=== PATIENT | female | born 1950 | race Caucasian/White ===

== ENCOUNTER → 2016-08-08 | Outpatient (CLI) | payer OTHER ==
[~2016-08-08] MED LIST: BISA10SU2 PR; DEXA4TAB PO; DEXA6TAB PO; ENOX40SY4 SQ; FAMO20TA7 PO; FISH OIL PO; HYDR-3138 PO; HYDR-3240 PO; LEVE10007 PO; LEVE500T53 PO; LEVE500T8 PO; NYST1000 PO; SENN-31 PO; SODI1TAB PO; TEMO250C3 PO; VITAMIN B PO; VITAMIN C PO; VITAMIN D PO; VITAMIN E PO
== END | disposition home or self-care (01) ==
LOC: ROC 08:18
PROVIDERS: ATTEND Radiology Radiation Oncology
DX: C71.3 Malignant neoplasm of parietal lobe (principal)
CPT/HCPCS: 99213; G0463

== ENCOUNTER → 2016-09-19 | Outpatient (CLI) | payer MEDICARE, OTHER ==
[~2016-09-19] MED LIST changes: +GADOBUTROL 7.5 MMOL/7.5 ML PFS ONE
== END | disposition home or self-care (01) ==
LOC: CFH 10:02
PROVIDERS: ATTEND Radiology Radiation Oncology
DX: C71.4 Malignant neoplasm of occipital lobe (principal); G93.89 Other specified disorders of brain; T50.8X1A Poisoning by diagnostic agents, accidental (unintentional), initial encounter
CPT/HCPCS: 36415; 70553; 82565; 84520; A9585

== ENCOUNTER → 2016-09-21 | Outpatient (CLI) | payer MEDICARE, OTHER ==
[~2016-09-21] MED LIST changes: -GADOBUTROL 7.5 MMOL/7.5 ML PFS ONE
== END | disposition home or self-care (01) ==
LOC: ROC 08:29
PROVIDERS: ATTEND Radiology Radiation Oncology
DX: C71.9 Malignant neoplasm of brain, unspecified (principal)
CPT/HCPCS: G0463

== ENCOUNTER → 2016-11-24 | Outpatient (CLI) | payer MEDICARE, OTHER ==
[~2016-11-24] MED LIST changes: +GADOBUTROL 10 MMOL/10 ML PFS ONE
== END | disposition home or self-care (01) ==
LOC: CFH 09:07
PROVIDERS: ATTEND Radiology Radiation Oncology
DX: C71.9 Malignant neoplasm of brain, unspecified (principal); G93.89 Other specified disorders of brain; T50.8X4A Poisoning by diagnostic agents, undetermined, initial encounter
CPT/HCPCS: 70553; 82565; A9585

== ENCOUNTER 2016-11-27 18:57 | Inpatient (IN) | payer MEDICARE, OTHER ==
[~2016-11-27] VITALS: Ht 160 cm; Wt 72.8 kg
[~2016-11-27 18:57] MED LIST changes: -GADOBUTROL 10 MMOL/10 ML PFS ONE
[2016-11-27 20:03] LABS: BLOOD UREA NITROGEN 13 mg/dL (7-18)
[2016-11-27] MEDS ORDERED: DEXAMETHASONE 4 MG/ML, 5ML ONE (21:26)
[2016-11-27] MEDS ORDERED: DEXAMETHASONE 4 MG/ML, 1ML IVPush ONE (21:30)
[2016-11-27] MEDS ORDERED: LEVO50TA5 PO (22:12)
[2016-11-27] MEDS ORDERED: ASPI81TA14 PO (22:12)
[2016-11-27] MEDS ORDERED: SULF1TAB24 PO (22:12)
[2016-11-27] MEDS ORDERED: SULF1TAB23 PO (22:12)
[2016-11-27 22:35] VITALS: BP 135/87
[2016-11-27] MEDS ORDERED: ONDANSETRON 2MG/ML, 2ML IVPush PRN (23:00)
[2016-11-27] MEDS ORDERED: morphine SULFATE 10 MG/ML, 1ML IVPush PRN (23:00)
[2016-11-27] MEDS ORDERED: ACETAMINOPHEN 325 MG TABLET PO PRN (23:00)
[2016-11-27] MEDS ORDERED: LORazepam 2 MG/ML, 1ML IVPush PRN (23:00)
[2016-11-27] MEDS ORDERED: ENALAPRILAT 1.25 MG/ML, 2ML IVPush PRN (23:00)
[2016-11-28 03:30] VITALS: BP 129/87
[2016-11-28] MEDS: DEXAMETHASONE 4 MG/ML, 1ML IVPush SCH ×4 (03:55→20:36)
[2016-11-28 04:59] LABS: BLOOD UREA NITROGEN 11 mg/dL (7-18)
[2016-11-28] MEDS: INSULIN REGULAR 100 UNITS/ML, 3ML VIAL SQ-INSULIN SCH ×4 (07:00→20:36)
[2016-11-28] MEDS ORDERED: GADOBUTROL 7.5 MMOL/7.5 ML PFS ONE (07:33)
[2016-11-28 07:58] VITALS: BP 118/79
[2016-11-28 13:12] VITALS: BP 123/82
[2016-11-28] MEDS: LEVETIRACETAM 500 MG TABLET PO SCH ×2 (14:17→20:36)
[2016-11-28] MEDS: SULFAMETH./TRIMETHOPRIM DS 800MG/160MG TABLET PO SCH (14:17)
[2016-11-28] MEDS: DOCUSATE 100 MG CAPSULE PO PRN ×2 (14:20→20:36)
[2016-11-28 19:31] VITALS: BP 121/85
[2016-11-29 03:06] VITALS: BP 130/90
[2016-11-29] MEDS: DEXAMETHASONE 4 MG/ML, 1ML IVPush SCH ×3 (03:14→14:33)
[2016-11-29] MEDS ORDERED: LEVOTHYROXINE 50 MCG TABLET PO SCH (06:00)
[2016-11-29] MEDS: INSULIN REGULAR 100 UNITS/ML, 3ML VIAL SQ-INSULIN SCH ×3 (07:00→14:33)
[2016-11-29 07:15] VITALS: BP 119/78
[2016-11-29] MEDS: SULFAMETH./TRIMETHOPRIM DS 800MG/160MG TABLET PO SCH (08:52)
[2016-11-29] MEDS: LEVETIRACETAM 500 MG TABLET PO SCH (08:52)
[2016-11-29 12:53] VITALS: BP 137/87
[2016-11-29] MEDS ORDERED: SIMV20TA PO (14:29)
== END 2016-11-29 16:36 | disposition home health service (06) | DRG 64 ==
LOC: ED 20:55 → EDIP 21:33 → 3NW 22:39
PROVIDERS: ADMIT Internal Medicine; ATTEND Internal Medicine
DX: I63.9 Cerebral infarction, unspecified (principal); G93.40 Encephalopathy, unspecified; C71.4 Malignant neoplasm of occipital lobe; C71.9 Malignant neoplasm of brain, unspecified; R47.01 Aphasia; E03.9 Hypothyroidism, unspecified; H53.461 Homonymous bilateral field defects, right side; R56.9 Unspecified convulsions; Y84.2 Radiological procedure and radiotherapy as the cause of abnormal reaction of the patient, or of later complication, without mention of misadventure at the time of the procedure; Y92.89 Other specified places as the place of occurrence of the external cause; Z87.891 Personal history of nicotine dependence; Z80.8 Family history of malignant neoplasm of other organs or systems; Z79.82 Long term (current) use of aspirin; Z79.899 Other long term (current) drug therapy
CPT/HCPCS: 36415; 70450; 70553; 71010; 80048; 81003; 82040; 82962; 85025; 85610; 85730; 93005; 96374; A9585; J1100; J1815; 92523-GN

== ENCOUNTER → 2016-11-30 | Outpatient (CLI) | payer MEDICARE, OTHER ==
[~2016-11-30] MED LIST changes: +ASPI81TA14 PO; +LEVO50TA5 PO; +SIMV20TA PO; +SULF1TAB23 PO; +SULF1TAB24 PO
== END | disposition home or self-care (01) ==
LOC: ROC 07:47
PROVIDERS: ATTEND Radiology Radiation Oncology
DX: C71.3 Malignant neoplasm of parietal lobe (principal); G81.91 Hemiplegia, unspecified affecting right dominant side
CPT/HCPCS: G0463

== ENCOUNTER → 2017-01-27 | Outpatient (CLI) | payer MEDICARE, OTHER ==
[~2017-01-27] MED LIST changes: +GADOBUTROL 7.5 MMOL/7.5 ML PFS ONE; -HYDR-3138 PO; +HYDR-3237 PO
== END | disposition home or self-care (01) ==
LOC: CFH 08:36
PROVIDERS: ATTEND Radiology Radiation Oncology
DX: C71.4 Malignant neoplasm of occipital lobe (principal); T50.8X4A Poisoning by diagnostic agents, undetermined, initial encounter; R90.82 White matter disease, unspecified; Z98.890 Other specified postprocedural states
CPT/HCPCS: 36415; 70553; 82565; 84520; A9585

== ENCOUNTER → 2017-04-05 | Outpatient (CLI) | payer MEDICARE, OTHER ==
[~2017-04-05] MED LIST changes: -GADOBUTROL 7.5 MMOL/7.5 ML PFS ONE
== END ==
LOC: ROC 10:40
PROVIDERS: ATTEND Radiology Radiation Oncology
DX: C71.4 Malignant neoplasm of occipital lobe (principal)
CPT/HCPCS: G0463

== ENCOUNTER → 2017-04-19 | Outpatient (CLI) | payer MEDICARE, OTHER ==
[2017-04-19 11:13] LABS: HEMATOCRIT 43.6 % (34.6-47.8); HEMOGLOBIN 14.8 g/dL (11.7-16.4); WHITE BLOOD COUNT 11.2 x10^3/uL (3.4-10)
[2017-04-19 11:26] LABS: BLOOD UREA NITROGEN 13 mg/dL (7-18)
[2017-04-19 11:37] LABS: ASPARTATE AMINO TRANSFERASE 21 U/L (15-37)
== END | disposition home or self-care (01) ==
LOC: CFH 09:45
PROVIDERS: ATTEND Internal Medicine Hematology & Oncology
DX: Z51.12 Encounter for antineoplastic immunotherapy (principal); C71.4 Malignant neoplasm of occipital lobe; H53.40 Unspecified visual field defects
CPT/HCPCS: 36415; 80053; 84443; 85025

== ENCOUNTER → 2017-05-23 | Outpatient (CLI) | payer MEDICARE, OTHER | END | disposition home or self-care (01) | LOC: ROC 13:33 | PROVIDERS: ATTEND Radiology Radiation Oncology | DX: C71.3 Malignant neoplasm of parietal lobe (principal) | CPT/HCPCS: G0463 ==

== ENCOUNTER → 2017-05-25 | Outpatient (CLI) | payer MEDICARE, OTHER ==
[~2017-05-25] MED LIST changes: +GADOBUTROL 7.5 MMOL/7.5 ML PFS ONE
[2017-05-25 12:55] LABS: CREATININE 0.67 mg/dL (0.55-1.02)
== END | disposition home or self-care (01) ==
LOC: CFH 09:23
PROVIDERS: ATTEND Radiology Radiation Oncology
DX: C71.4 Malignant neoplasm of occipital lobe (principal); G31.9 Degenerative disease of nervous system, unspecified; Z79.890 Hormone replacement therapy
CPT/HCPCS: 36415; 70553; 82565; 84520; A9585

== ENCOUNTER → 2017-07-07 | Outpatient (CLI) | payer MEDICARE, OTHER ==
[~2017-07-07] MED LIST changes: -GADOBUTROL 7.5 MMOL/7.5 ML PFS ONE
[2017-07-07 12:53] LABS: BASOPHILS # (AUTO) 0.04 x10^3/uL (0-0.1); BASOPHILS % (AUTO) 1 % (0-1); EOSINOPHILS # (AUTO) 0.08 x10^3/uL (0-0.4); EOSINOPHILS % (AUTO) 1 % (1-7); LYMPHOCYTES # (AUTO) 1.16 x10^3/uL (1-3.4); LYMPHOCYTES % (AUTO) 17 % (22-44); MD NO; MEAN CORPUSCULAR HEMOGLOBIN 33.5 pg (27.0-34.8); MEAN CORPUSCULAR VOLUME 101.3 fL (80-100); MEAN PLATELET VOLUME 6.7 fL (7.4-10.4); MONOCYTES # (AUTO) 0.51 x10^3/uL (0.2-0.8); MONOCYTES % (AUTO) 7 % (2-9); NEUTROPHILS # (AUTO) 5.18 x10^3/uL (1.8-6.8); NEUTROPHILS % (AUTO) 74 % (42-75); PLATELET COUNT 317 x10^3/uL (130-400); RED BLOOD COUNT 4.09 x10^6/uL (3.82-5.3); RED CELL DISTRIBUTION WIDTH 13.8 % (9.6-15.2)
[2017-07-07 13:03] LABS: ALBUMIN 3.5 g/dL (3.4-5.0); ANION GAP 7 mmol/L (5-15); CALCIUM 8.7 mg/dL (8.5-10.1); CHLORIDE 105 mmol/L (98-107)
[2017-07-07 13:14] LABS: ALANINE AMINOTRANSFERASE 59 U/L (12-78); ALKALINE PHOSPHATASE 109 U/L (45-117); BILIRUBIN,TOTAL 0.7 mg/dL (0.2-1.0); CREATININE 0.72 mg/dL (0.55-1.02); TOTAL PROTEIN 6.3 g/dL (6.4-8.2)
== END | disposition home or self-care (01) ==
LOC: CFH 08:42
PROVIDERS: ATTEND Internal Medicine Hematology & Oncology
DX: C71.4 Malignant neoplasm of occipital lobe (principal); H53.40 Unspecified visual field defects; Z79.899 Other long term (current) drug therapy
CPT/HCPCS: 36415; 80053; 83735; 84443; 85025

== ENCOUNTER → 2017-07-24 | Outpatient (CLI) | payer MEDICARE, OTHER ==
[~2017-07-24] MED LIST changes: +GADOBUTROL 7.5 MMOL/7.5 ML VIAL ONE
== END | disposition home or self-care (01) ==
LOC: CFH 09:13
PROVIDERS: ATTEND Radiology Radiation Oncology
DX: C71.4 Malignant neoplasm of occipital lobe (principal)
CPT/HCPCS: 70553; A9585

== ENCOUNTER → 2017-07-27 | Outpatient (CLI) | payer MEDICARE, OTHER ==
[~2017-07-27] MED LIST changes: -GADOBUTROL 7.5 MMOL/7.5 ML VIAL ONE
== END | disposition home or self-care (01) ==
LOC: ROC 07:27
PROVIDERS: ATTEND Radiology Radiation Oncology
DX: Z08 Encounter for follow-up examination after completed treatment for malignant neoplasm (principal); C71.4 Malignant neoplasm of occipital lobe
CPT/HCPCS: G0463

== ENCOUNTER → 2017-09-14 | Outpatient (CLI) | payer MEDICARE, OTHER ==
[~2017-09-14] MED LIST changes: +GADOBUTROL 7.5 MMOL/7.5 ML PFS ONE
== END | disposition home or self-care (01) ==
LOC: RAD 10:00
PROVIDERS: ATTEND Radiology Radiation Oncology
DX: G93.89 Other specified disorders of brain (principal); R90.82 White matter disease, unspecified; C71.4 Malignant neoplasm of occipital lobe
CPT/HCPCS: 70553; A9585

== ENCOUNTER → 2017-09-20 | Outpatient (CLI) | payer MEDICARE, OTHER ==
[~2017-09-20] MED LIST changes: -GADOBUTROL 7.5 MMOL/7.5 ML PFS ONE
== END ==
LOC: ROC 07:54
PROVIDERS: ATTEND Radiology Radiation Oncology
DX: Z08 Encounter for follow-up examination after completed treatment for malignant neoplasm (principal); C71.4 Malignant neoplasm of occipital lobe
CPT/HCPCS: G0463

== ENCOUNTER → 2017-11-27 | Outpatient (CLI) | payer MEDICARE, OTHER ==
[~2017-11-27] MED LIST changes: +GADOBUTROL 7.5 MMOL/7.5 ML PFS ONE
== END | disposition home or self-care (01) ==
LOC: CFH 10:41
PROVIDERS: ATTEND Radiology Radiation Oncology
DX: C71.4 Malignant neoplasm of occipital lobe (principal)
CPT/HCPCS: 70553; 82565; A9585

== ENCOUNTER → 2018-01-23 | Outpatient (CLI) | payer MEDICARE, OTHER | END | disposition home or self-care (01) | LOC: CFH 09:23 | PROVIDERS: ATTEND Radiology Radiation Oncology | DX: C71.4 Malignant neoplasm of occipital lobe (principal); Z87.891 Personal history of nicotine dependence | CPT/HCPCS: 70553; A9585 ==

== ENCOUNTER → 2018-01-24 | Outpatient (CLI) | payer MEDICARE, OTHER ==
[~2018-01-24] MED LIST changes: -GADOBUTROL 7.5 MMOL/7.5 ML PFS ONE
== END | disposition home or self-care (01) ==
LOC: ROC 07:24
PROVIDERS: ATTEND Radiology Radiation Oncology
DX: C71.3 Malignant neoplasm of parietal lobe (principal)
CPT/HCPCS: G0463

== ENCOUNTER 2018-02-17 08:36 | Inpatient (IN) | payer MEDICARE, OTHER ==
[~2018-02-17] VITALS: Ht 160 cm; Wt 79.5 kg
[2018-02-17] MEDS ORDERED: ONDA8TAB12 PO (08:49)
[2018-02-17] MEDS ORDERED: SODIUM CHLORIDE 0.9% 1,000 ML IV ONE ×2 (09:42→13:00)
[2018-02-17] MEDS ORDERED: ONDANSETRON 2MG/ML, 2ML IVPush ONE (10:00)
[2018-02-17 10:37] LABS: BASOPHILS # (AUTO) 0.02 x10^3/uL (0-0.1); BASOPHILS % (AUTO) 0 % (0-1); EOSINOPHILS # (AUTO) 0.09 x10^3/uL (0-0.4); EOSINOPHILS % (AUTO) 1 % (1-7); LYMPHOCYTES # (AUTO) 1.17 x10^3/uL (1-3.4); LYMPHOCYTES % (AUTO) 14 % (22-44); MD NO; MEAN CORPUSCULAR HEMOGLOBIN 34.9 pg (27.0-34.8); MEAN CORPUSCULAR HGB CONC 34.6 g/dL (32.4-35.8); MEAN CORPUSCULAR VOLUME 100.8 fL (80-100); MEAN PLATELET VOLUME 6.2 fL (7.4-10.4); MONOCYTES # (AUTO) 0.73 x10^3/uL (0.2-0.8); MONOCYTES % (AUTO) 9 % (2-9); NEUTROPHILS # (AUTO) 6.29 x10^3/uL (1.8-6.8); NEUTROPHILS % (AUTO) 76 % (42-75); PLATELET COUNT 226 x10^3/uL (130-400); RED BLOOD COUNT 4.34 x10^6/uL (3.82-5.3); RED CELL DISTRIBUTION WIDTH 13.9 % (9.6-15.2)
[2018-02-17 10:51] LABS: ALANINE AMINOTRANSFERASE 33 U/L (12-78); ANION GAP 10 mmol/L (5-15); CALCIUM 9.1 mg/dL (8.5-10.1); CHLORIDE 99 mmol/L (98-107); CREATININE 0.57 mg/dL (0.55-1.02)
[2018-02-17 10:53] LABS: ALKALINE PHOSPHATASE 76 U/L (45-117); BILIRUBIN,TOTAL 1.1 mg/dL (0.2-1.0); TOTAL PROTEIN 7.1 g/dL (6.4-8.2)
[2018-02-17 11:02] LABS: MICROSCOPIC NOT IND
[2018-02-17 11:09] LABS: CULTURE INDICATED? NO
[2018-02-17] MEDS ORDERED: ONDANSETRON 2MG/ML, 2ML IVPush PRN ×2 (12:00→13:30)
[2018-02-17 12:30] VITALS: BP 125/75
[2018-02-17] MEDS ORDERED: SODIUM CHLORIDE FLUSH 10ML SYR IVF PRN (13:00)
[2018-02-17] MEDS ORDERED: POTA25TA4 PO (13:07)
[2018-02-17] MEDS: NS + 20MEQ KCL 1,000 ML IV SCH (13:09)
[2018-02-17] MEDS ORDERED: MAGNESIUM SULFATE PMX 2GM/50ML 50 ML IV ONE (13:30)
[2018-02-17] MEDS ORDERED: BISACODYL 10 MG SUPP PR PRN (13:30)
[2018-02-17] MEDS ORDERED: POLYETHYLENE GLYCOL 17 GM PACKET PO PRN (13:30)
[2018-02-17] MEDS ORDERED: DOCUSATE 100 MG CAPSULE PO PRN (13:30)
[2018-02-17] MEDS ORDERED: ENALAPRILAT 1.25 MG/ML, 2ML IVPush PRN (13:30)
[2018-02-17] MEDS ORDERED: ACETAMINOPHEN 325 MG TABLET PO PRN (13:30)
[2018-02-17] MEDS ORDERED: POTASSIUM CHLORIDE 40 MEQ in SODIUM CHLORIDE 0.9% 500 ML IV ONE (14:00)
[2018-02-17] MEDS: DEXAMETHASONE 4 MG/ML, 1ML IVPush SCH ×2 (15:47→22:51)
[2018-02-17] MEDS: LEVETIRACETAM 500 MG in SODIUM CHLORIDE 0.9% 100 ML IV SCH (17:24)
[2018-02-17 19:45] VITALS: BP 134/85
[2018-02-18 00:18] VITALS: BP 139/85
[2018-02-18] MEDS: LEVETIRACETAM 500 MG in SODIUM CHLORIDE 0.9% 100 ML IV SCH ×2 (05:04→09:51)
[2018-02-18] MEDS: DEXAMETHASONE 4 MG/ML, 1ML IVPush SCH ×3 (05:04→16:30)
[2018-02-18 05:13] LABS: BASOPHILS % (AUTO) 0 % (0-1); EOSINOPHILS % (AUTO) 0 % (1-7); LYMPHOCYTES # (AUTO) 0.63 x10^3/uL (1-3.4); LYMPHOCYTES % (AUTO) 7 % (22-44); MD NO; MEAN CORPUSCULAR HGB CONC 34.8 g/dL (32.4-35.8); MEAN CORPUSCULAR VOLUME 100.5 fL (80-100); MEAN PLATELET VOLUME 6.1 fL (7.4-10.4); MONOCYTES # (AUTO) 0.27 x10^3/uL (0.2-0.8); MONOCYTES % (AUTO) 3 % (2-9); NEUTROPHILS # (AUTO) 8.35 x10^3/uL (1.8-6.8); NEUTROPHILS % (AUTO) 90 % (42-75); PLATELET COUNT 246 x10^3/uL (130-400); RED BLOOD COUNT 4.29 x10^6/uL (3.82-5.3); RED CELL DISTRIBUTION WIDTH 13.6 % (9.6-15.2)
[2018-02-18 05:22] LABS: ANION GAP 12 mmol/L (5-15); CHLORIDE 98 mmol/L (98-107)
[2018-02-18 05:23] LABS: CALCIUM 8.5 mg/dL (8.5-10.1); CREATININE 0.49 mg/dL (0.55-1.02)
[2018-02-18 07:00] VITALS: BP 135/86
[2018-02-18] MEDS ORDERED: LEVOTHYROXINE 100 MCG INJ IVPush SCH (09:00)
[2018-02-18] MEDS: NS + 20MEQ KCL 1,000 ML IV SCH (11:00)
[2018-02-18] MEDS ORDERED: PROCHLORPERAZINE 25 MG SUPP PR PRN (12:00)
[2018-02-18] MEDS ORDERED: SCOPOLAMINE PATCH, 1.5MG PATCH.TD72 TD PRN (12:00)
[2018-02-18] MEDS: MORPHINE SULFATE 4 MG/ML, 1ML IVPush PRN ×4 (12:31→19:28)
[2018-02-18] MEDS: LORazepam 2 MG/ML, 1ML IVPush PRN ×2 (14:14→18:01)
[2018-02-18 19:54] VITALS: BP 128/82
[2018-02-18] MEDS: morphine SULFATE 10 MG/ML, 1ML IVPush PRN (22:16)
[2018-02-19] MEDS: morphine SULFATE 10 MG/ML, 1ML IVPush PRN ×4 (01:42→23:24)
[2018-02-19] MEDS: LORazepam 2 MG/ML, 1ML IVPush PRN ×2 (13:17→17:46)
[2018-02-20] MEDS: LORazepam 2 MG/ML, 1ML IVPush PRN ×4 (01:01→20:59)
[2018-02-20] MEDS: morphine SULFATE 10 MG/ML, 1ML IVPush PRN ×3 (05:40→21:00)
[2018-02-21] MEDS: LORazepam 2 MG/ML, 1ML IVPush PRN ×2 (08:20→16:27)
[2018-02-21] MEDS: morphine SULFATE 10 MG/ML, 1ML IVPush PRN ×4 (08:44→19:42)
[2018-02-21] MEDS: ATROPINE OPHTH SOLN 1%, 2ML BC PRN (12:10)
[2018-02-22] MEDS: morphine SULFATE 10 MG/ML, 1ML IVPush PRN ×2 (01:22→07:32)
[2018-02-22] MEDS: ATROPINE OPHTH SOLN 1%, 2ML BC PRN ×3 (10:37→12:38)
== END 2018-02-22 15:20 | disposition expired | DRG 54 ==
LOC: ED 09:32 → 3NW 11:48
PROVIDERS: ADMIT Internal Medicine; ATTEND Internal Medicine
DX: C71.9 Malignant neoplasm of brain, unspecified (principal); G93.6 Cerebral edema; G93.40 Encephalopathy, unspecified; E87.1 Hypo-osmolality and hyponatremia; R47.01 Aphasia; E86.0 Dehydration; Z66 Do not resuscitate; Z51.5 Encounter for palliative care; Z87.891 Personal history of nicotine dependence; E87.6 Hypokalemia; Z80.8 Family history of malignant neoplasm of other organs or systems; Z98.891 History of uterine scar from previous surgery; Z92.21 Personal history of antineoplastic chemotherapy
CPT/HCPCS: 36415; 70450; 70553; 80048; 80053; 81003; 83690; 83735; 84443; 85025; 93005; 96360; 96361; 99285; G0378; J1100; J1953; J2270; J3480; J2060; J3475; J7030; J7040